=== PATIENT | female | born 1970 | race Caucasian/White ===

== ENCOUNTER 2022-09-30 18:52 | Emergency (ER) | payer OTHER ==
[~2022-09-30] VITALS: Ht 170.2 cm; Wt 93.0 kg
[2022-09-30 19:26] VITALS: BP 128/80
== END 2022-09-30 19:30 | disposition home or self-care (01) ==
LOC: ER 18:52
DX: S61.212A Laceration without foreign body of right middle finger without damage to nail, initial encounter (principal); X58.XXXA Exposure to other specified factors, initial encounter; Y93.89 Activity, other specified; Y92.89 Other specified places as the place of occurrence of the external cause; Y99.8 Other external cause status
CPT/HCPCS: 12001

== ENCOUNTER 2022-10-12 14:42 | Emergency (ER) | payer MEDICAID, OTHER ==
[~2022-10-12] VITALS: Ht 170.2 cm; Wt 100.0 kg
[2022-10-12] MEDS ORDERED: ONDA-144 PO (15:12)
[2022-10-12 15:14] VITALS: BP 122/78
[2022-10-12 16:04] LABS: Basophils # (auto) 0.1 10 ^3/uL (0-0.2); Basophils % (auto) 0.7 % (0.0-2.0); Eosinophils # (auto) 0.4 10 ^3/uL (0-0.8); Eosinophils % (auto) 2.9 % (0.0-7.0); Hematocrit 40.6 % (36.0-46.0); Hemoglobin 13.8 g/dL (12.2-16.2); Lymphocytes # (auto) 3.2 10 ^3/uL (0.4-5.4); Lymphocytes % (auto) 26.1 % (10.0-50.0); Mean Corpuscular Hemoglobin 30.3 pg (28.0-32.0); Mean Corpuscular Volume 89.3 fL (80.0-100.0); Monocytes # (auto) 0.7 10 ^3/uL (0-1.3); Monocytes % (auto) 5.7 % (0.0-12.0); Neutrophils % (auto) 64.6 % (37.0-80.0); Nucleated Red Blood Cells % 0.1 %; Red Blood Cells 4.55 10^6/uL (4.0-5.20); Red Cell Distribution Width 13.4 % (11.8-14.3); White Blood Cell 12.3 10^3/uL (4.4-10.8)
[2022-10-12 16:16] LABS: Urine Bacteria NONE SEEN /hpf (None Seen); Urine Blood Negative /uL (Negative); Urine Mucus FEW (None Seen); Urine Specific Gravity 1.024 (1.001-1.035); Urine WBC 2 /hpf (0 - 5)
[2022-10-12 16:19] LABS: Albumin 3.8 g/dL (3.4-5.0); Potassium 3.9 mmol/L (3.5-5.1)
[2022-10-12 16:23] LABS: BUN/Creatinine Ratio 11.8 (10.0-20.0); Bilirubin, Total 0.3 mg/dL (0.2-1.0)
[2022-10-12] MEDS ORDERED: ONDANSETRON ODT 4 MG TAB PO ONE (16:30)
== END 2022-10-12 15:24 | disposition home or self-care (01) ==
LOC: ER 14:42
DX: G43.909 Migraine, unspecified, not intractable, without status migrainosus (principal); I11.0 Hypertensive heart disease with heart failure; I50.9 Heart failure, unspecified; J44.9 Chronic obstructive pulmonary disease, unspecified; E78.5 Hyperlipidemia, unspecified
CPT/HCPCS: 36415; 80053; 81001; 85025; 87086; 99283; Q0162

== ENCOUNTER 2024-01-06 15:09 | Inpatient (IN) | payer MEDICAID ==
[~2024-01-06] VITALS: Ht 170.2 cm; Wt 90.3 kg
[~2024-01-06 15:09] MED LIST: ONDA-144 PO
[2024-01-06] MEDS ORDERED: VANCOMYCIN PER PHARMACY 0 MG IV SCH ×2 (16:00→18:15)
[2024-01-06] MEDS: PIPERACILLIN-TAZOB 3.375GM 100 ML IV ONE (16:23)
[2024-01-06] MEDS: SODIUM CHLORIDE 0.9% 1,000 ML IV ONE (16:23)
[2024-01-06 16:44] LABS: Basophils # (auto) 0.1 10 ^3/uL (0-0.2); Basophils % (auto) 0.9 % (0.0-2.0); Eosinophils # (auto) 0.6 10 ^3/uL (0-0.8); Eosinophils % (auto) 5.8 % (0.0-7.0); Hematocrit 33.3 % (36.0-46.0); Hemoglobin 11.4 g/dL (12.2-16.2); Lymphocytes # (auto) 2.3 10 ^3/uL (0.4-5.4); Lymphocytes % (auto) 20.7 % (10.0-50.0); Mean Corpuscular Hemoglobin 31.2 pg (28.0-32.0); Mean Corpuscular Hgb Conc. 34.1 g/dL (32.0-36.0); Mean Corpuscular Volume 91.4 fL (80.0-100.0); Monocytes # (auto) 0.8 10 ^3/uL (0-1.3); Monocytes % (auto) 7.1 % (0.0-12.0); Neutrophils # (auto) 7.3 10 ^3/uL (1.6-8.6); Neutrophils % (auto) 65.5 % (37.0-80.0); Red Blood Cells 3.65 10^6/uL (4.0-5.20); Red Cell Distribution Width 12.9 % (11.8-14.3); White Blood Cell 11.1 10^3/uL (4.4-10.8)
[2024-01-06 16:48] VITALS: PULSE 79; RESP 13; O2SAT 94
[2024-01-06 16:59] LABS: Alanine Aminotransferase 26 U/L (7-40); Alkaline Phosphatase 83 U/L (46-116); Anion Gap 8 (5-15); Aspartate Aminotransferase 13 U/L (13-40); BUN/Creatinine Ratio 9.5 (10.0-20.0); Bilirubin, Total 0.4 mg/dL (0.2-1.0); Blood Urea Nitrogen 7 mg/dL (9-23); CRP High Sensitivity 0.83 mg/dL (<1.0); Carbon Dioxide 26 mmol/L (20-30); Chloride 106 mmol/L (98-107); Glucose 107 mg/dL (74-106); Potassium 3.7 mmol/L (3.5-5.1); Sodium 140 mmol/L (136-145); Total Protein 6.6 g/dL (5.7-8.2)
[2024-01-06 17:17] LABS: Erythrocyte Sedimentation Rate 24 mm/hr (0-20)
[2024-01-06] MEDS ORDERED: IBUP-1455 PO (18:01)
[2024-01-06] MEDS ORDERED: CEPH500C PO (18:01)
[2024-01-06] MEDS ORDERED: HYDROcodone-ACET 5/325MG TAB PO PRN (18:15)
[2024-01-06] MEDS ORDERED: ACETAMINOPHEN 325 MG TAB PO PRN ×3 (18:15→18:45)
[2024-01-06 18:35] LABS: Urine Bacteria None Seen /hpf (None Seen)
[2024-01-06] MEDS ORDERED: SODIUM CHLORIDE 0.9% 1,000 ML IV SCH ×2 (18:45)
[2024-01-06] MEDS: SODIUM CHLORIDE 0.9% 1,000 ML IV SCH (18:54)
[2024-01-06] MEDS: IOHEXOL 300 MG/ML 100ML BOTTLE IJ ONE (18:54)
[2024-01-06] MEDS: VANCOMYCIN 1GM/200ML 200 ML IV ONE (18:54)
[2024-01-06 19:04] LABS: Urine Blood TRACE /uL (Negative); Urine Clarity Clear (Clear); Urine Color Light-Yellow (Yellow); Urine Hyaline Cast FEW /lpf (0 - 2); Urine Mucus FEW (None Seen); Urine Protein, UAD Negative (Negative); Urine Specific Gravity 1.016 (1.001-1.035); Urine Urobilinogen Normal (Negative); Urine WBC 1 /hpf (0 - 5); Urine pH 5.5 (5.0-9.0)
[2024-01-06 19:04] LABS: LDL Cholesterol 128 mg/dL (< 100); Triglycerides 366 mg/dL (< 150)
[2024-01-06 19:06] LABS: Cholesterol 213 mg/dL (< 200); HDL Cholesterol 47 mg/dL (40-59)
[2024-01-06 19:39] VITALS: PULSE 82; RESP 14; O2SAT 96
[2024-01-06 21:00] VITALS: BP 113/71; PULSE 70; RESP 18; TEMP 98.2; O2SAT 100
[2024-01-06 21:43] VITALS: BP 134/72; PULSE 70; RESP 18; TEMP 98.2; O2SAT 97
[2024-01-06] MEDS ORDERED: ASCORBIC ACID 500 MG TAB PO SCH (22:00)
[2024-01-06] MEDS: ASCORBIC ACID 500 MG TAB PO SCH (22:18)
[2024-01-06] MEDS: PIPERACILLIN-TAZOB 3.375GM 100 ML IV SCH (22:18)
[2024-01-07] VITALS (7 sets, daily range): BP systolic 117–134; BP diastolic 62–82; PULSE 64–73; RESP 15–20; TEMP 97.8–98.7; O2SAT 93–97
[2024-01-07 06:13] LABS: Basophils # (auto) 0.1 10 ^3/uL (0-0.2); Basophils % (auto) 0.7 % (0.0-2.0); Eosinophils # (auto) 0.6 10 ^3/uL (0-0.8); Hematocrit 30.8 % (36.0-46.0); Hemoglobin 10.8 g/dL (12.2-16.2); Lymphocytes # (auto) 1.8 10 ^3/uL (0.4-5.4); Lymphocytes % (auto) 24.2 % (10.0-50.0); Mean Corpuscular Hemoglobin 32.1 pg (28.0-32.0); Mean Corpuscular Volume 91.8 fL (80.0-100.0); Monocytes # (auto) 0.6 10 ^3/uL (0-1.3); Monocytes % (auto) 8.3 % (0.0-12.0); Neutrophils # (auto) 4.5 10 ^3/uL (1.6-8.6); Neutrophils % (auto) 58.8 % (37.0-80.0); Red Blood Cells 3.36 10^6/uL (4.0-5.20); White Blood Cell 7.6 10^3/uL (4.4-10.8)
[2024-01-07 06:27] LABS: Alanine Aminotransferase 22 U/L (7-40); Albumin 3.6 g/dL (3.2-4.8); Alkaline Phosphatase 76 U/L (46-116); Anion Gap 5 (5-15); Aspartate Aminotransferase 12 U/L (13-40); Bilirubin, Total 0.5 mg/dL (0.2-1.0); Calcium 8.9 mg/dL (8.7-10.4); Carbon Dioxide 28 mmol/L (20-30); Chloride 108 mmol/L (98-107); Glucose 100 mg/dL (74-106); Potassium 3.9 mmol/L (3.5-5.1); Sodium 141 mmol/L (136-145)
[2024-01-07 06:28] LABS: BUN/Creatinine Ratio 6.5 (10.0-20.0); Blood Urea Nitrogen < 5 mg/dL (9-23)
[2024-01-07] MEDS ORDERED: VANCOMYCIN 1GM/200ML 200 ML IV SCH (07:00)
[2024-01-07] MEDS: VANCOMYCIN 1GM/200ML 200 ML IV SCH (08:36)
[2024-01-07] MEDS: ZINC SULFATE 220mg CAP or TAB PO SCH (09:30)
[2024-01-07] MEDS: MULTIPLE VITAMIN TAB PO SCH (09:31)
[2024-01-07] MEDS ORDERED: MULTIPLE VITAMIN TAB PO SCH (10:00)
[2024-01-07] MEDS ORDERED: ZINC SULFATE 220mg CAP or TAB PO SCH (10:00)
[2024-01-07] MEDS: SILVER SULFADIAZINE 1 % TOPICAL CREAM 50GM TOP SCH (19:51)
[2024-01-08] VITALS (8 sets, daily range): BP systolic 101–132; BP diastolic 57–80; PULSE 59–71; RESP 15–20; TEMP 97.5–98.4; O2SAT 93–96
[2024-01-08 14:51] LABS: Basophils # (auto) 0.1 10 ^3/uL (0-0.2); Basophils % (auto) 0.8 % (0.0-2.0); Eosinophils # (auto) 0.5 10 ^3/uL (0-0.8); Eosinophils % (auto) 7.6 % (0.0-7.0); Hematocrit 33.1 % (36.0-46.0); Hemoglobin 11.3 g/dL (12.2-16.2); Lymphocytes # (auto) 2.1 10 ^3/uL (0.4-5.4); Lymphocytes % (auto) 29.1 % (10.0-50.0); Mean Corpuscular Hemoglobin 31.2 pg (28.0-32.0); Mean Corpuscular Hgb Conc. 34.1 g/dL (32.0-36.0); Mean Corpuscular Volume 91.6 fL (80.0-100.0); Monocytes # (auto) 0.6 10 ^3/uL (0-1.3); Monocytes % (auto) 8.7 % (0.0-12.0); Neutrophils # (auto) 3.9 10 ^3/uL (1.6-8.6); Neutrophils % (auto) 53.8 % (37.0-80.0); Nucleated Red Blood Cells % 0.1 %; Red Blood Cells 3.62 10^6/uL (4.0-5.20); Red Cell Distribution Width 12.8 % (11.8-14.3); White Blood Cell 7.2 10^3/uL (4.4-10.8)
[2024-01-08 15:01] LABS: Chloride 106 mmol/L (98-107); Sodium 141 mmol/L (136-145)
[2024-01-08 15:02] LABS: Anion Gap 7 (5-15); Carbon Dioxide 28 mmol/L (20-30)
[2024-01-08 15:07] LABS: BUN/Creatinine Ratio 10.1 (10.0-20.0); Blood Urea Nitrogen 7 mg/dL (9-23); Glucose 110 mg/dL (74-106)
[2024-01-09 01:00] VITALS: BP 109/70; PULSE 71; RESP 20; TEMP 97.7; O2SAT 95
[2024-01-09 05:00] VITALS: BP 116/72; PULSE 60; RESP 18; TEMP 99; O2SAT 92
[2024-01-09 08:00] VITALS: PULSE 73; RESP 18; O2SAT 96
[2024-01-09 08:41] VITALS: BP 114/77; PULSE 73; RESP 16; TEMP 97.1; O2SAT 96
[2024-01-09] MEDS ORDERED: CLIN1CAP70 PO (11:44)
[2024-01-09] MEDS ORDERED: HYDR-4902 PO (11:44)
[2024-01-09] MEDS ORDERED: SILV1CRE82 TOP (11:44)
[2024-01-09 12:10] VITALS: BP 121/93; PULSE 69; RESP 16; TEMP 97.3; O2SAT 96
== END 2024-01-09 12:30 | disposition home or self-care (01) | DRG 721 ==
LOC: EEVIPCON 15:09 → ER 15:09 → OVERFLOW 18:17 → EAST 21:41
PROVIDERS: ADMIT Nurse Practitioner Family; ATTEND Internal Medicine
DX: T85.79XA Infection and inflammatory reaction due to other internal prosthetic devices, implants and grafts, initial encounter (principal); I50.9 Heart failure, unspecified; E66.01 Morbid (severe) obesity due to excess calories; N61.0 Mastitis without abscess; Z98.82 Breast implant status; Z68.31 Body mass index [BMI] 31.0-31.9, adult; Y84.8 Other medical procedures as the cause of abnormal reaction of the patient, or of later complication, without mention of misadventure at the time of the procedure; Y92.89 Other specified places as the place of occurrence of the external cause
CPT/HCPCS: 36415; 71260; 74177; 80048; 80053; 80061; 80202; 81001; 82565; 83605; 84443; 84484; 85025; 85652; 86141; 87040; 93005; 99291; G0378; J2543

== ENCOUNTER 2024-02-26 07:23 | Emergency (ER) | payer MEDICAID ==
[~2024-02-26] VITALS: Ht 170.2 cm; Wt 87.3 kg
[~2024-02-26 07:23] MED LIST changes: +CLIN1CAP70 PO; +HYDR-4902 PO; -ONDA-144 PO; +SILV1CRE82 TOP
[2024-02-26] MEDS ORDERED: PENI500T2 PO (08:04)
[2024-02-26 08:15] VITALS: BP 102/59; PULSE 88; RESP 16; TEMP 98.3; O2SAT 95
[2024-02-26] MEDS: PENICILLIN G PROC & BENZAT 1200000 UNITS/2 ML SYRG IM ONE (08:20)
[2024-02-26] MEDS: methylPREDNISolone SOD SUCC 125 MG/2 ML VL IM ONE (08:20)
== END 2024-02-26 08:32 | disposition home or self-care (01) ==
LOC: ER 07:23
DX: J03.00 Acute streptococcal tonsillitis, unspecified (principal); Z79.811 Long term (current) use of aromatase inhibitors
CPT/HCPCS: 96372; 99284; J0558; J2919

== ENCOUNTER 2024-12-13 17:43 | Emergency (ER) | payer MEDICAID ==
[~2024-12-13] VITALS: Ht 170.2 cm; Wt 91.0 kg
[~2024-12-13 17:43] MED LIST changes: +AZIT-43 PO; +PENI500T2 PO
[2024-12-13 18:14] VITALS: BP 127/82; PULSE 83; RESP 16; TEMP 97.9; O2SAT 95
[2024-12-13] MEDS ORDERED: ALBUAER3 IN (18:18)
--- NOTE | 2024-12-13 18:19 | ED.PDOC ---
SOB-HPI HPI Comments 54-year-old female presents to ER with complaints of back pain x2 days. Patient reports that she started experiencing diffuse lower lumbar back pain two days ago. Denies any trauma/injury and rates her current pain an 8/10 diffuse to lower lumbar spine without radiation. Patient presents to ER ambulatory on arrival, with steady gait, in no distress and reports that she also needs a refill on her albuterol inhaler for her asthma. 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 Family History Family History: Unknown Social History Smoker: Non-Smoker Alcohol: Denies ETOH Use Drugs: Denies Drug Use Lives In: Home Constitutional: denies: chills, diaphoresis, fatigue, fever, malaise, sweats, weakness, others EENTM: denies: blurred vision, double vision, ear bleeding, ear discharge, ear drainage, ear pain, ear ringing, eye pain, eye redness, hearing loss, mouth pain, mouth swelling, nasal discharge, nose bleeding, nose congestion, nose pain, photophobia, tearing, throat pain, throat swelling, voice changes, others Respiratory: denies: cough, hemoptysis, orthopnea, SOB at rest, shortness of breath, SOB with excertion, stridor, wheezing, others Cardiovascular: denies: chest pain, dizzy spells, diaphoresis, Dyspnea on exertion, edema, irregular heart beat, left arm pain, lightheadedness, palpitations, PND, syncope, others Gastrointestinal: denies: abdomen distended, abdominal pain, blood streaked bowels, constipated, diarrhea, dysphagia, difficulty swallowing, hematemesis, melena, nausea, poor appetite, poor fluid intake, rectal bleeding, rectal pain, vomiting, others Genitourinary: denies: abnormal vagina bleeding, burning, dyspareunia, dysuria, flank pain, frequency, hematuria, incontinence, pain, , vagina discharge, urgency, others Neurological: denies: dizziness, fainting, headache, left sided numbness, left sided weakness, numbness, paresthesia, pre-existing deficit, right sided numbness, right sided weakness, seizure, speech problems, tingling, tremors, weakness, others Musculoskeletal: reports: others (As stated in HPI) Integumetry: denies: bruises, change in color, change in hair/nails, dryness, laceration, lesions, lumps, rash, wounds, others Allergic/Immunocompromised: denies: Difficulty Healing, Frequent Infections, Hives, Itching, others Hematologic/Lymphatic: denies: anemia, blood clots, easy bleeding, easy bruising, swollen glands, others Endocrine: denies: excessive hunger, excessive sweating, excessive thirst, excessive urination, flushing, intolerance to cold, intolerance to heat, unexplained weight gain, unexplained weight loss, others Psychiatric: denies: anxiety, bipolar disorder, depression, hopeless, panic disorder, schizophrenia, sleepless, suicidal, others Physical Exam General Appearance: No Apparent Distress, Obese HEENT: PERRL/EOMI Neck: Full Range of Motion, Non-Tender, Normal Respiratory: Chest Non-Tender, Lungs Clear, No Accessory Muscle Use, No Respiratory Distress, Normal Breath Sounds Cardiovascular: No Murmur, No Gallop, Regular Rate/Rhythm Breast Exam: Deferred Gastrointestinal: Non Tender, No Pulsatile Mass, Soft Genitalia: Deferred Pelvic: Deferred Rectal: Deferred Extremities: Normal capillary refill, Normal range of motion Musculoskeletal : Extremity Location: Back (Slight TTP to bilateral lower lumbar paraspinals noted. No bony tenderness to spine appreciated. Steady gait noted) Neurologic: Alert, change person II-XII nml as Tested, No Motor Deficits, Normal Affect, Normal Mood, No Sensory Deficits Cerebellar Function: Normal Reflexes: Normal Skin: Dry, Normal Color, Warm Lymphatic: No Adenopathy Was a procedure done? Was a procedure done?: No Sedation Sedation?: No Differential Dx Differential Diagnosis: Other (Fracture, UTI, neurovascular injury) X-Ray, Labs, Meds, VS Vital Signs Date Time Temp Pulse Resp B/P (MAP) Pulse Ox O2 Delivery O2 Flow Rate FiO2 12/13/24 18:14 97.9 83 16 127/82 (97) 95 97.9 12/13/24 18:00 79 18 96 Room Air 12/13/24 17:59 98.3 79 18 119/81 (94) 96 98.3 Lab Test 12/13/24 17:50 Range/Units Urine Color Light-yellow Yellow Urine Clarity Clear Clear Urine pH 5.0 5.0-9.0 Urine Specific Manter 1.020 1.001-1.035 Urine Protein Negative Negative Urine Ketones Negative Negative Urine Blood 1+ H Negative /uL Urine Nitrite Negative Negative Urine Bilirubin Negative Negative Urine Urobilinogen Normal Negative mg/dL Urine Leukocyte Esterase Negative Negative /uL Urine RBC <1 0 - 4 /hpf Urine Microscopic WBC < 1 0-5 /HPF Urine Squamous Epithelial Cells Few <5 /hpf Urine Bacteria None seen None Seen /hpf Urine Mucus Few None Seen Urine Glucose Normal Normal mg/dL Urinalysis reviewed without any significant abnormality Advised on rest/no strenuous activity Advised to follow up with PCP in 1-2 days Patient verbalized understanding and agreeable with current plan of care Advised to return to ER immediately if symptoms worsen Time of 1ST Reevaluation: 17:54 Reevaluation 1ST: N/A Patient Education/Counseling: Diagnosis, Treatment, Prognosis, Need For Follow Up Family Education/Counseling: No Family Present SEPSIS Sepsis Screen Date sepsis recognized/suspect: Dec 13, 2024 Time Sepsis recognized/suspect: 1811 Recent Procedure: No On Antibiotic Therapy: No Respiratory Rate >20: No Heart Rate >90: No Temp<36 C (96.8 F) or >38.3 C: No SBP <90 or MAP <65 mmHG: No New Acute Mental Status Change: No Is the patient on CPAP, BIPAP,: No Vital Signs Date Time Temp Pulse Resp B/P (MAP) Pulse Ox O2 Delivery O2 Flow Rate FiO2 12/13/24 18:14 97.9 83 16 127/82 (97) 95 97.9 12/13/24 18:00 79 18 96 Room Air 12/13/24 17:59 98.3 79 18 119/81 (94) 96 98.3 Departure 1 Departure Time of Disposition: 18:12 Impression: Primary Impression: Lumbar strain Qualified Codes: S39.012A - Strain of muscle, fascia and tendon of lower back, initial encounter Additional Impression: Medication refill Disposition: HOME / SELF CARE / HOMELESS Condition: Stable e-Prescriptions Cyclobenzaprine Hcl (Cyclobenzaprine Hcl) 5 Mg Tab 1 TAB PO QHSP, #14 TAB 0 Refills Prov: JULIA CARRERO 12/13/24 Ibuprofen (Ibuprofen) 800 Mg Tab 1 TAB PO TID PRN, #30 TAB 0 Refills Prov: JULIA CARRERO 12/13/24 Albuterol Sulfate (VENTOLIN MDI) 90 Mcg Ih 2 PUFF IN Q6HPRN, #1 INH 0 Refills Prov: JULIA CARRERO 12/13/24 Discharged With: Self Critical Care Note Critical Care Time?: No Stability Stability form required: No Heart Score Heart Score: Heart Score Response (Comments) Value History N/A 0 EKG N/A 0 Age N/A 0 Risk Factors N/A 0 Troponin N/A 0 Total 0 JULIA CARRERO Dec 13, 2024 18:19
[2024-12-13 18:22] LABS: Urine Protein, UAD Negative (Negative)
[2024-12-13] MEDS ORDERED: CYCL-837 PO (18:26)
[2024-12-13] MEDS ORDERED: IBUP-1456 PO (18:26)
== END 2024-12-13 18:35 | disposition home or self-care (01) ==
LOC: ER 17:47
DX: S39.012A Strain of muscle, fascia and tendon of lower back, initial encounter (principal); J45.909 Unspecified asthma, uncomplicated; Z76.0 Encounter for issue of repeat prescription; X58.XXXA Exposure to other specified factors, initial encounter; Y93.89 Activity, other specified; Y92.89 Other specified places as the place of occurrence of the external cause; Y99.8 Other external cause status
CPT/HCPCS: 81001

== ENCOUNTER 2025-01-21 14:27 | Emergency (ER) | payer MEDICAID ==
[~2025-01-21] VITALS: Ht 170.2 cm; Wt 95.4 kg
[~2025-01-21 14:27] MED LIST changes: +ALBUAER3 IN; +CYCL-837 PO; +IBUP-1456 PO
[2025-01-21 14:30] VITALS: TEMP 97.9
[2025-01-21 15:38] LABS: Hematocrit 36.3 % (36.0-46.0); Hemoglobin 12.4 g/dL (12.2-16.2); Mean Corpuscular Hemoglobin 31.3 pg (28.0-32.0); Mean Corpuscular Volume 91.5 fL (80.0-100.0); Nucleated Red Blood Cells % 0.0 %
--- NOTE | 2025-01-21 15:50 | DVH ---
Exam: CT CT AB PEL WO CON-NO ORAL OR IV History: diverticulitis Comparison Study: None TECHNIQUE: Multidetector CT of the abdomen was performed from lung bases to pubic symphysis. Imaging was performed without IV contrast. Axial, coronal and sagittal multiplanar reformats were obtained fr om the axial data set by the technologist. Radiation Dose Information: CT Dose: CTDI volume is 23.68 mGy. Dose-length product is 1326.79 mGy*cm FINDINGS: Evaluation of solid organs is limited due to lack of intravenous contrast use. Findings: Lung Bases: No acute or significant lung base finding. Normal heart size. No pleural or pericardial effusion. Liver: The liver is normal in size. No focal lesions. Gallbladder and Biliary Tree: Gallbladder has been surgically removed. Spleen: Unremarkable Pancreas: The pancreas is grossly normal in appearance. Adrenal Glands: Unremarkable Kidneys: Kidneys are grossly normal without calculi or hydronephrosis. Bladder: Grossly unremarkable for degree of distention. Bowel: The stomach is grossly normal in appearance. Stomach distended with food and fluid. Utilizatio n of GLP drugs delay gastric emptying. Small bowel and colon are normal in caliber and distribution. The appendix is not visualized; however, no secondary findings of acute appendicitis identified. Ascites: Absent Lymphadenopathy: No mesenteric, retroperitoneal or periportal lymphadenopathy. Abdominal Wall and Mesentery: Unremarkable. Vasculature: The visualized abdominal aorta is normal in size and caliber. Evaluation of abdominal a nd pelvic vessels is limited due to lack of intravenous contrast. Pelvic Organs: Unremarkable Musculoskeletal: No aggressive focal bony lesions, acute fractures or dislocation. Soft tissues: Unremarkable IMPRESSION: 1. Gallbladder has been surgically removed. 2. No nephrolithiasis or hydronephrosis. 3. No CT findings of bowel obstruction. 4. Stomach distended with stool and fluid. Correlate for DLP 1 drug utilization which May account fo r delayed gastric emptying. 5. No CT findings to suggest diverticulitis. No free air or free fluid. Radiation optimization: All CT scans at this facility use at least one of these dose optimization clarisse hniques: automated exposure control mA and/or kV adjustment per patient size (includes targeted exam s where dose is matched to clinical indication) or iterative reconstruction.
[2025-01-21] MEDS: SODIUM CHLORIDE 0.9% 1,000 ML IV ONE (15:58)
--- NOTE | 2025-01-21 15:59 | ED.PDOC ---
GI ASSESSMENT HPI Comments 54 y/o F, with PMHx of diverticular disease presents to the ED for CC of GI Bleed. Patient states, she has been having bloody stools with associated symptoms of nausea and vomiting [id number]. Patient denies hematemesis, abdominal pain, dizziness, fatigue, weakness, or blurred vision. No other symptoms or modifying factors present at this time. Chief Complaint: GI Bleed Time Seen by MD: 15:35 Primary Care Provider: CHASIDY Reviewed Notes: Nurses Notes, Medications, Allergies Allergies: Coded Allergies: NO KNOWN ALLERGIES (Unverified , 09/30/22) Home Meds Active Scripts Cyclobenzaprine Hcl (Cyclobenzaprine Hcl) 5 Mg Tab, 1 TAB PO QHSP, #14 TAB 0 Refills Prov:JULIA CARRERO 12/13/24 Ibuprofen (Ibuprofen) 800 Mg Tab, 1 TAB PO TID PRN, #30 TAB 0 Refills Prov:JULIA CARRERO 12/13/24 Albuterol Sulfate (VENTOLIN MDI) 90 Mcg Ih, 2 PUFF IN Q6HPRN, #1 INH 0 Refills Prov:JULIA CARRERO 12/13/24 Azithromycin (Azithromycin) 250 Mg Tab, 250 MG PO DAILY MDD 500 for 5 Days, #6 TAB 0 Refills 2 TABLETS ORALLY ON DAY ONE, THEN 1 TABLET ORALLY DAILY FOR 4 DAYS Prov:KIKA AHUJA NP 07/04/24 Penicillin V Potassium (Veetids) 500 Mg Tab, 1 TAB PO QID, #28 TAB Prov:FREDI ADLER 02/26/24 Clindamycin Hcl (Clindamycin Hcl) 300 Mg Cap, 1 CAP PO TID, #21 CAP Prov:SASHA FRANCIS MD 01/09/24 Silver Sulfadiazine (Silvadene) 1 % Cre, 1 APPLIC TOP BID, #1 GRAMS Prov:SASHA FRANCIS MD 01/09/24 Hydrocodone-Acetaminophen (Hydrocodone Bitartrate/AC 5-325 mg) 1 Tab Tab, 1 TAB PO Q4HP PRN, #20 TAB Prov:SASHA FRANCIS MD 01/09/24 Information Source: Patient Mode of Arrival: Ambulatory Timing: Weeks Duration: Since onset Prehospital treatment: None Quality: None Vomitus: None Stool: Blood Streaked Severity: Moderate Recent: None Recent Hx of: None Pain Location: None Modifying Factors: Nothing Associated sign and symptoms: Nausea, Vomiting, Blood in Stool Past Medical History PAST MEDICAL HISTORY: Asthma Surgical History: Denies all surgeries 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 Family History Family History: Unknown Social History Smoker: Non-Smoker Alcohol: Denies ETOH Use Drugs: Denies Drug Use Lives In: Home Constitutional: denies: chills, diaphoresis, fatigue, fever, malaise, sweats, weakness, others EENTM: denies: blurred vision, double vision, ear bleeding, ear discharge, ear drainage, ear pain, ear ringing, eye pain, eye redness, hearing loss, mouth pain, mouth swelling, nasal discharge, nose bleeding, nose congestion, nose pain, photophobia, tearing, throat pain, throat swelling, voice changes, others Respiratory: denies: cough, hemoptysis, orthopnea, SOB at rest, shortness of breath, SOB with excertion, stridor, wheezing, others Cardiovascular: denies: chest pain, dizzy spells, diaphoresis, Dyspnea on exertion, edema, irregular heart beat, left arm pain, lightheadedness, palpitations, PND, syncope, others Gastrointestinal: reports: blood streaked bowels, nausea, vomiting; denies: abdomen distended, abdominal pain, constipated, diarrhea, dysphagia, difficulty swallowing, hematemesis, melena, poor appetite, poor fluid intake, rectal bleeding, rectal pain, others Genitourinary: denies: abnormal vagina bleeding, burning, dyspareunia, dysuria, flank pain, frequency, hematuria, incontinence, pain, , vagina discharge, urgency, others Neurological: denies: dizziness, fainting, headache, left sided numbness, left sided weakness, numbness, paresthesia, pre-existing deficit, right sided numbness, right sided weakness, seizure, speech problems, tingling, tremors, weakness, others Musculoskeletal: denies: back pain, gout, joint pain, joint swelling, muscle pain, muscle stiffness, neck pain, others Integumetry: denies: bruises, change in color, change in hair/nails, dryness, laceration, lesions, lumps, rash, wounds, others Allergic/Immunocompromised: denies: Difficulty Healing, Frequent Infections, Hives, Itching, others Hematologic/Lymphatic: denies: anemia, blood clots, easy bleeding, easy bruising, swollen glands, others Endocrine: denies: excessive hunger, excessive sweating, excessive thirst, excessive urination, flushing, intolerance to cold, intolerance to heat, unexplained weight gain, unexplained weight loss, others Psychiatric: denies: anxiety, bipolar disorder, depression, hopeless, panic disorder, schizophrenia, sleepless, suicidal, others All Other Systems: Reviewed and Negative Physical Exam General Appearance: Moderate Distress HEENT: Normal ENT Inspection, Pharynx Normal, TMs Normal Neck: Full Range of Motion, Non-Tender, Normal, Normal Inspection Respiratory: Chest Non-Tender, Lungs Clear, No Accessory Muscle Use, No Respiratory Distress, Normal Breath Sounds Cardiovascular: No Edema, No JVD, No Murmur, No Gallop, Normal Peripheral Pulses, Regular Rate/Rhythm Breast Exam: Deferred Gastrointestinal: No Organomegaly, Non Tender, No Pulsatile Mass, Normal Bowel Sounds, Soft Genitalia: Deferred Pelvic: Deferred Rectal: Deferred Extremities: No calf tenderness, Normal capillary refill, Normal inspection, Normal range of motion, Non-tender, No pedal edema Musculoskeletal : Apperance: Normal Neurologic: Alert, visual merchandising associate II-XII nml as Tested, No Motor Deficits, Normal Affect, Normal Mood, No Sensory Deficits Cerebellar Function: Normal Reflexes: Normal Skin: Dry, Normal Color, Warm Peripheral Pulses: 3+ Radial (R), 3+ Radial (L) Lymphatic: No Adenopathy Was a procedure done? Was a procedure done?: No GI differential Dx Differential Diagnosis: Diverticular disease, Esophagitis, Gastritis/PUD, Gastroenteritis, GI hemorrhage, Inflammatory BD X-Ray, Labs, Meds, VS Vital Signs Date Time Temp Pulse Resp B/P (MAP) Pulse Ox O2 Delivery O2 Flow Rate FiO2 01/21/25 14:30 97.9 82 16 109/63 95 97.9 Lab Test 01/21/25 15:19 Range/Units White Blood Count 12.4 H 4.4-10.8 10^3/uL Red Blood Count 3.96 L 4.0-5.20 10^6/uL Hemoglobin 12.4 12.2-16.2 g/dL Hematocrit 36.3 36.0-46.0 % Mean Corpuscular Volume 91.5 80.0-100.0 fL Mean Corpuscular Hemoglobin 31.3 28.0-32.0 pg Mean Corpuscular Hemoglobin Concent 34.2 32.0-36.0 g/dL Red Cell Distribution Width 13.3 11.8-14.3 % Platelet Count 333 140-450 10^3/uL Mean Platelet Volume 8.3 6.9-10.8 fL Neutrophils (%) (Auto) 64.9 37.0-80.0 % Lymphocytes (%) (Auto) 26.6 10.0-50.0 % Monocytes (%) (Auto) 5.6 0.0-12.0 % Eosinophils (%) (Auto) 2.4 0.0-7.0 % Basophils (%) (Auto) 0.5 0.0-2.0 % Neutrophils # (Auto) 8.0 1.6-8.6 10 ^3/uL Lymphocytes # (Auto) 3.3 0.4-5.4 10 ^3/uL Monocytes # (Auto) 0.7 0-1.3 10 ^3/uL Eosinophils # (Auto) 0.3 0-0.8 10 ^3/uL Basophils # (Auto) 0.1 0-0.2 10 ^3/uL Nucleated Red Blood Cells 0.0 % Current Medications Medications (Trade) Dose Ordered Sig/Nghia Route Start Time Stop Time Status Last Admin Sodium Chloride 1,000 ml @ 1,000 mls/hr Q1H ONCE IV 01/21/25 15:15 01/21/25 16:14 DC 01/21/25 15:58 Metronidazole 100 ml @ 100 mls/hr ONCE ONCE IV 01/21/25 16:30 01/21/25 17:29 01/21/25 16:54 [place] [id number] Ph: [phone] DIAGNOSTIC IMAGING Diagnostic Imaging Report : [id number] Signed PATIENT: STEPHANI JEAN-BAPTISTE BACCT: [id number] UNIT: [id number] : 1970 LOC: ER ROOM / BED: / AGE / SEX: 54 / F ADM STATUS: REG ER SERVICE 9705 ORDERING PHYSICIAN: SANDRA DE LA ROSA MD PROCEDURE(s): ABPL - CT AB PEL WO CON-NO ORAL OR IV REASON: diverticulitis ORDER NUMBER(s): [id number], ACCESSION NUMBER(s): [id number] Exam: CT CT AB PEL WO CON-NO ORAL OR IV History: diverticulitis Comparison Study: None TECHNIQUE: Multidetector CT of the abdomen was performed from lung bases to pubic symphysis. Imaging was performed without IV contrast. Axial, coronal and sagittal multiplanar reformats were obtained from the axial data set by the technologist. Radiation Dose Information: CT Dose: CTDI volume is 23.68 mGy. Dose-length product is 1326.79 mGy*cm FINDINGS: Evaluation of solid organs is limited due to lack of intravenous contrast use. Findings: Lung Bases: No acute or significant lung base finding. Normal heart size. No pleural or pericardial effusion. Liver: The liver is normal in size. No focal lesions. Gallbladder and Biliary Tree: Gallbladder has been surgically removed. Spleen: Unremarkable Pancreas: The pancreas is grossly normal in appearance. Adrenal Glands: Unremarkable Kidneys: Kidneys are grossly normal without calculi or hydronephrosis. Bladder: Grossly unremarkable for degree of distention. Bowel: The stomach is grossly normal in appearance. Stomach distended with food and fluid. Utilization of GLP drugs delay gastric emptying. Small bowel and colon are normal in caliber and distribution. The appendix is not visualized; however, no secondary findings of acute appendicitis identified. Ascites: Absent Lymphadenopathy: No mesenteric, retroperitoneal or periportal lymphadenopathy. Abdominal Wall and Mesentery: Unremarkable. Vasculature: The visualized abdominal aorta is normal in size and caliber. Evaluation of abdominal and pelvic vessels is limited due to lack of intravenous contrast. Pelvic Organs: Unremarkable Musculoskeletal: No aggressive focal bony lesions, acute fractures or dislocation. Soft tissues: Unremarkable IMPRESSION: 1. Gallbladder has been surgically removed. 2. No nephrolithiasis or hydronephrosis. 3. No CT findings of bowel obstruction. 4. Stomach distended with stool and fluid. Correlate for DLP 1 drug utilization which May account for delayed gastric emptying. 5. No CT findings to suggest diverticulitis. No free air or free fluid. Radiation optimization: All CT scans at this facility use at least one of these dose optimization techniques: automated exposure control mA and/or kV adjustment per patient size (includes targeted exams where dose is matched to clinical indication) or iterative reconstruction. ATED BY: ROSELYN CARTER Jr., DO DICTATED DATE/TIME: 01/21/25 154 SIGNED BY: ROSELYN CARTER Jr., SIGNED DATE/TIME: 01/21/251547 CC: Patient alert. Complaining of abdominal pain. Possible gastroenteritis. Vitals stable. Abdomen is soft nontender. She has delayed emptying. Possibly benefit from anaerobic antibiotics. Establish intravenous access. Was given fluids. CT scan of the abdomen does not reveal any acute process. WBC slightly elevated. Possibly from dehydration. Explained to the patient. Was told to follow up with her primary care physician. Was told to come back if there is any problem. Time of 1ST Reevaluation: 16:05 Reevaluation 1ST: Unchanged Patient Education/Counseling: Diagnosis, Treatment Family Education/Counseling: No Family Present SEPSIS Sepsis Screen Date sepsis recognized/suspect: Jan 21, 2025 Time Sepsis recognized/suspect: 1433 Recent Procedure: No On Antibiotic Therapy: No Respiratory Rate >20: No Heart Rate >90: No Temp<36 C (96.8 F) or >38.3 C: No SBP <90 or MAP <65 mmHG: No New Acute Mental Status Change: No Is the patient on CPAP, BIPAP,: No Physician Orders Urinalysis (01/21/25 15:07) Ct Ab Pel Wo Con-No Oral Or Iv (01/21/25 15:07) Metronidazole 500mg/100ml (Flagyl 500mg/ (01/21/25 16:30) Vital Signs Date Time Temp Pulse Resp B/P (MAP) Pulse Ox O2 Delivery O2 Flow Rate FiO2 01/21/25 14:30 97.9 82 16 109/63 95 97.9 Laboratory Tests Test 01/21/25 15:19 White Blood Count 12.4 10^3/uL (4.4-10.8) H Medications Medications Dose Ordered Sig/Nghia Route Start Time Stop Time Status Last Admin Dose Admin Metronidazole 100 ml @ 100 mls/hr ONCE ONCE IV 01/21/25 16:30 01/21/25 17:29 01/21/25 16:54 Sodium Chloride 1,000 ml @ 1,000 mls/hr Q1H ONCE IV 01/21/25 15:15 01/21/25 16:14 DC 01/21/25 15:58 Departure 1 Departure Time of Disposition: 17:00 Impression: Primary Impression: Gastroenteritis Additional Impression: Constipation Qualified Codes: K59.01 - Slow transit constipation Disposition: HOME / SELF CARE / HOMELESS Condition: Good e-Prescriptions Metronidazole (Flagyl) 500 Mg Tab 1 TAB PO TID for 5 Days, #15 TAB Prov: SANDRA DE LA ROSA MD 01/21/25 Discharged With: Self Critical Care Note Critical Care Time?: No Stability Stability form required: No Heart Score Heart Score: Heart Score Response (Comments) Value History N/A 0 EKG N/A 0 Age N/A 0 Risk Factors N/A 0 Troponin N/A 0 Total 0 I personally scribed for SANDRA DE LA ROSA MD ([email or web address]) on 01/21/25 at 15:59. Electronically submitted by Kym Groves ([email or web address]). I personally scribed for SANDRA DE LA ROSA MD ([email or web address]) on 01/21/25 at 16:51. Electronically submitted by Kym Groves ([email or web address]). SANDRA DE LA ROSA MD Jan 21, 2025 15:59
[2025-01-21] MEDS ORDERED: METR-344 PO (17:02)
[2025-01-21 17:19] VITALS: BP 118/59; PULSE 78; RESP 18; O2SAT 95
== END 2025-01-21 17:18 | disposition home or self-care (01) ==
LOC: ER 14:27
DX: K52.9 Noninfective gastroenteritis and colitis, unspecified (principal); K59.00 Constipation, unspecified; J45.909 Unspecified asthma, uncomplicated; Z79.899 Other long term (current) drug therapy
CPT/HCPCS: 36415; 74176; 85025; 96361; 96374; 99285; J3490; J7030

== ENCOUNTER 2025-01-27 08:02 | Inpatient (IN) | payer MEDICAID ==
[~2025-01-27] VITALS: Ht 170.2 cm; Wt 104.5 kg
[2025-01-27] VITALS (10 sets, daily range): BP systolic 129–150; BP diastolic 68–85; PULSE 55–65; RESP 16–20; TEMP 97.6–98.3; O2SAT 95–100
[~2025-01-27 08:02] MED LIST changes: +METR-344 PO
--- NOTE | 2025-01-27 08:39 | ED.PDOC ---
History of Present Illness HPI Comments A 54-YEAR-OLD FEMALE WITH A C/C OF LOW ABDOMINAL PAIN WITH ASSOCIATED NAUSEA WITH BLOOD IN THE STOOL FOR 7 DAYS. PATIENT ADDITIONALLY REPORTS BLOOD STREAKED STOOL FOR X2 WEEKS. PATIENT REPORTS BEING SEEN BY DOCTOR RJ X1 WEEK AGO FOR ABDOMINAL PAIN AND BEING DISCHARGED WITH GASTROENTERITIS. PATIENT REPORTS HAVING AN ADDITIONAL WHITE BLOOD COUNT OF 12.4 AND HX OF COLITIS IN THE PAST. PATIENT HAS NO FURTHER COMPLAINTS AT THIS TIME AND OTHERWISE DENIES FURTHER ASSOCIATED SYMPTOMS OF VOMITING, DIARRHEA, FEVER, CHILLS, OR DYSURIA. PATIENT IS ALERT, ORIENTED X 4, AND HAS STEADY GAIT. Chief Complaint: Abdominal Pain Time Seen by MD: 08:27 Primary Care Provider: CHASIDY Reviewed Notes: Nurses Notes, Medications, Allergies Allergies: Coded Allergies: NO KNOWN ALLERGIES (Unverified , 09/30/22) Home Meds Active Scripts Metronidazole (Flagyl) 500 Mg Tab, 1 TAB PO TID for 5 Days, #15 TAB Prov:SANDRA DE LA ROSA MD 01/21/25 Cyclobenzaprine Hcl (Cyclobenzaprine Hcl) 5 Mg Tab, 1 TAB PO QHSP, #14 TAB 0 Refills Prov:JULIA CARRERO 12/13/24 Ibuprofen (Ibuprofen) 800 Mg Tab, 1 TAB PO TID PRN, #30 TAB 0 Refills Prov:JULIA CARRERO 12/13/24 Albuterol Sulfate (VENTOLIN MDI) 90 Mcg Ih, 2 PUFF IN Q6HPRN, #1 INH 0 Refills Prov:JULIA CARRERO 12/13/24 Azithromycin (Azithromycin) 250 Mg Tab, 250 MG PO DAILY MDD 500 for 5 Days, #6 TAB 0 Refills 2 TABLETS ORALLY ON DAY ONE, THEN 1 TABLET ORALLY DAILY FOR 4 DAYS Prov:KIKA AHUJA NP 07/04/24 Penicillin V Potassium (Veetids) 500 Mg Tab, 1 TAB PO QID, #28 TAB Prov:FREDI ADLER 02/26/24 Clindamycin Hcl (Clindamycin Hcl) 300 Mg Cap, 1 CAP PO TID, #21 CAP Prov:SASHA FRANCIS MD 01/09/24 Silver Sulfadiazine (Silvadene) 1 % Cre, 1 APPLIC TOP BID, #1 GRAMS Prov:SASHA FRANCIS MD 7/28/24 Hydrocodone-Acetaminophen (Hydrocodone Bitartrate/AC 5-325 mg) 1 Tab Tab, 1 TAB PO Q4HP PRN, #20 TAB Prov:SASHA FRANCIS MD 01/09/24 Information Source: Patient Mode of Arrival: Ambulatory Severity: Moderate Timing: Days Duration: Since onset Medication Refill: For: Other (LOWER ABD PAIN WITH NAUSEA AND BLOOD IN THE STOOL ) Associated signs and symptoms NAUSEA AND ABDOMINAL PAIN Past Medical History PAST MEDICAL HISTORY: Asthma Past Medical History (Other): COLITIS Surgical History: Denies all surgeries GAMBLING MONITOR History: No Pertinent GAMBLING MONITOR History Family History Family History: Unknown Social History Smoker: Non-Smoker Alcohol: Denies ETOH Use Drugs: Denies Drug Use Lives In: Home Constitutional: denies: chills, diaphoresis, fatigue, fever, malaise, sweats, weakness, others EENTM: denies: blurred vision, double vision, ear bleeding, ear discharge, ear drainage, ear pain, ear ringing, eye pain, eye redness, hearing loss, mouth pain, mouth swelling, nasal discharge, nose bleeding, nose congestion, nose pain, photophobia, tearing, throat pain, throat swelling, voice changes, others Respiratory: denies: cough, hemoptysis, orthopnea, SOB at rest, shortness of breath, SOB with excertion, stridor, wheezing, others Cardiovascular: denies: chest pain, dizzy spells, diaphoresis, Dyspnea on exertion, edema, irregular heart beat, left arm pain, lightheadedness, palpitations, PND, syncope, others Gastrointestinal: reports: abdominal pain, nausea; denies: abdomen distended, blood streaked bowels, constipated, diarrhea, dysphagia, difficulty swallowing, hematemesis, melena, poor appetite, poor fluid intake, rectal bleeding, rectal pain, vomiting, others Genitourinary: reports: others (BLOOD IN THE STOOL. ); denies: abnormal vagina bleeding, burning, dyspareunia, dysuria, flank pain, frequency, hematuria, incontinence, pain, , vagina discharge, urgency Neurological: denies: dizziness, fainting, headache, left sided numbness, left sided weakness, numbness, paresthesia, pre-existing deficit, right sided numbness, right sided weakness, seizure, speech problems, tingling, tremors, weakness, others Musculoskeletal: denies: back pain, gout, joint pain, joint swelling, muscle pain, muscle stiffness, neck pain, others Integumetry: denies: bruises, change in color, change in hair/nails, dryness, laceration, lesions, lumps, rash, wounds, others Allergic/Immunocompromised: denies: Difficulty Healing, Frequent Infections, Hives, Itching, others Hematologic/Lymphatic: denies: anemia, blood clots, easy bleeding, easy bruis ing, swollen glands, others Endocrine: denies: excessive hunger, excessive sweating, excessive thirst, exc essive urination, flushing, intolerance to cold, intolerance to heat, unexplained weight gain, unexplained weight loss, others Psychiatric: denies: anxiety, bipolar disorder, depression, hopeless, panic disorder, schizophrenia, sleepless, suicidal, others All Other Systems: Reviewed and Negative Physical Exam General Appearance: Mild Distress, Obese HEENT: Normal ENT Inspection, PERRL/EOMI, Pharynx Normal, TMs Normal Neck: Full Range of Motion, Non-Tender, Normal, Normal Inspection Respiratory: Chest Non-Tender, Lungs Clear, No Accessory Muscle Use, No Respiratory Distress, Normal Breath Sounds Cardiovascular: No Edema, No JVD, No Murmur, No Gallop, Normal Peripheral Pulses, Regular Rate/Rhythm Breast Exam: Deferred Gastrointestinal: LLQ, No Organomegaly, No Pulsatile Mass, Normal Bowel Sounds, RLQ, Soft, Tenderness (LOWER ABD, NO GUARDING AND REBOUND TENDERNESS. ) Genitalia: Deferred Pelvic: Deferred Rectal: Other (PT DECLINED RECTAL EXAM. ) Extremities: No calf tenderness, Normal capillary refill, Normal inspection, Normal range of motion, Non-tender, No pedal edema Musculoskeletal : Apperance: Normal Neurologic: Alert, programmer numerical control II-XII nml as Tested, No Motor Deficits, Normal Affect, Normal Mood, No Sensory Deficits Cerebellar Function: Normal Reflexes: Normal Skin: Dry, Normal Color, Warm Peripheral Pulses: 2+ carotid (R), 2+ carotid (L) Lymphatic: No Adenopathy Was a procedure done? Was a procedure done?: No Differential Dx Considerations may include: COLITIS, UTI, DIVERTICULITIS X-Ray, Labs, Meds, VS Vital Signs Date Time Temp Pulse Resp B/P (MAP) Pulse Ox O2 Delivery O2 Flow Rate FiO2 01/27/25 12:00 98.3 60 18 139/82 (101) 97 98.3 01/27/25 11:51 60 18 97 Room Air 01/27/25 11:51 98.0 60 18 151/92 (111) 97 98.0 01/27/25 08:04 97.9 68 16 129/83 97 97.9 Lab Test 01/27/25 10:36 01/27/25 08:34 01/27/25 08:17 Range/Units White Blood Count 12.1 H 11.6 H 4.4-10.8 10^3/uL Red Blood Count 4.21 4.26 4.0-5.20 10^6/uL Hemoglobin 13.0 13.2 12.2-16.2 g/dL Hematocrit 38.3 38.5 36.0-46.0 % Mean Corpuscular Volume 91.1 90.4 80.0-100.0 fL Mean Corpuscular Hemoglobin 30.9 31.1 28.0-32.0 pg Mean Corpuscular Hemoglobin Concent 33.9 34.4 32.0-36.0 g/dL Red Cell Distribution Width 13.4 13.2 11.8-14.3 % Platelet Count 339 333 140-450 10^3/uL Mean Platelet Volume 8.8 8.5 6.9-10.8 fL Neutrophils (%) (Auto) 63.9 63.6 37.0-80.0 % Lymphocytes (%) (Auto) 26.9 26.1 10.0-50.0 % Monocytes (%) (Auto) 5.8 6.3 0.0-12.0 % Eosinophils (%) (Auto) 2.8 3.2 0.0-7.0 % Basophils (%) (Auto) 0.6 0.8 0.0-2.0 % Neutrophils # (Auto) 7.7 7.4 1.6-8.6 10 ^3/uL Lymphocytes # (Auto) 3.3 3.0 0.4-5.4 10 ^3/uL Monocytes # (Auto) 0.7 0.7 0-1.3 10 ^3/uL Eosinophils # (Auto) 0.3 0.4 0-0.8 10 ^3/uL Basophils # (Auto) 0.1 0.1 0-0.2 10 ^3/uL Nucleated Red Blood Cells 0.1 0.0 % Sodium Level 140 136-145 mmol/L Potassium Level 3.9 3.5-5.1 mmol/L Chloride Level 108 H 98-107 mmol/L Carbon Dioxide Level 26 20-31 mmol/L Anion Gap 6 5-15 Blood Urea Nitrogen 13 9-23 mg/dL Creatinine 0.74 0.550-1.02 mg/dL Glomerular Filtration Rate Calc 97 >90 mL/min BUN/Creatinine Ratio 17.6 10.0-20.0 Serum Glucose 96 74-106 mg/dL Hemoglobin A1c Pending Calcium Level 8.8 8.7-10.4 mg/dL Total Bilirubin 0.2 0.2-1.0 mg/dL Aspartate Amino Transferase (AST) 17 13-40 U/L Alanine Aminotransferase (ALT) 18 7-40 U/L Alkaline Phosphatase 95 46-116 U/L Total Protein 6.8 5.7-8.2 g/dL Albumin 4.3 3.2-4.8 g/dL Lipase 53 12-53 U/L Thyroid Stimulating Hormone (TSH) Pending Urine Color Light-yellow Yellow Urine Clarity Clear Clear Urine pH 5.5 5.0-9.0 Urine Specific [place] 1.020 1.001-1.035 Urine Protein Negative Negative Urine Ketones Negative Negative Urine Blood Trace H Negative /uL Urine Nitrite Negative Negative Urine Bilirubin Negative Negative Urine Urobilinogen Normal Negative mg/dL Urine Leukocyte Esterase Negative Negative /uL Urine RBC 1 0 - 4 /hpf Urine Microscopic WBC < 1 0-5 /HPF Urine Squamous Epithelial Cells Few <5 /hpf Urine Bacteria None seen None Seen /hpf Urine Glucose Normal Normal mg/dL Current Medications Medications (Trade) Dose Ordered Sig/Nghia Route Start Time Stop Time Status Last Admin Sodium Chloride 1,000 ml @ 1,000 mls/hr Q1H ONCE IV 01/27/25 09:30 01/27/25 10:29 DC 01/27/25 10:00 Ceftriaxone Sodium 50 ml @ 100 mls/hr ONCE ONCE IV 01/27/25 09:30 01/27/25 09:59 DC 01/27/25 09:45 Metronidazole 100 ml @ 100 mls/hr ONCE ONCE IV 01/27/25 11:45 01/27/25 12:44 DC 01/27/25 12:55 [facility] [id number] [place] [id number] Ph: [phone] DIAGNOSTIC IMAGING Diagnostic Imaging Report : [id number] Signed PATIENT: STEPHANI JEAN-BAPTISTE BACCT: [id number] UNIT: [id number] : 1970 LOC: ER ROOM / BED: / AGE / SEX: 54 / F ADM STATUS: REG ER SERVICE [id number] ORDERING PHYSICIAN: FREDI ADLER PROCEDURE(s): ABPL - CT AB PEL WO CON-NO ORAL OR IV REASON: LOW ABD PAIN WITH NAUSEA ORDER NUMBER(s): [id number], ACCESSION NUMBER(s): [id number] CT CT AB PEL WO CON-NO ORAL OR IV INDICATION: LOW ABD PAIN WITH NAUSEA EXAM DATE: 01/27/2025 08:20 AM COMPARISON: CT CT AB PEL WO CON-NO ORAL OR IV on DOS: 01/21/25, CT CT CHEST/AB/PL W CON- IV ONLY on DOS: 01/06/24 RADIATION DOSE: CTDIvol: 21.45 mGy, DLP: 1073.09 mGy*cm PROCEDURE: Helical CT images were obtained of the abdomen and pelvis without IV contrast Sagittal and coronal reconstructions are provided. ORAL CONTRAST: None. ADDITIONAL IMAGES / REFORMATS: None All CT scans at this medical facility are performed using dose modulation techniques as appropriate to a performed exam including the following: Automated exposure control was utilized; adjustment of the MA and/or KV according to patient size; and use of iterative reconstruction technique. FINDINGS: LUNG BASE: Normal. LIVER: Normal. GALLBLADDER AND BILIARY TREE: Annamaria clips. No intra- or extrahepatic biliary ductal dilation. PANCREAS: Normal. SPLEEN: Normal. BOWEL: Mild colonic diverticulosis. Normal appendix. ADRENALS: Normal. KIDNEYS AND URETER: Normal. BLADDER: Normal. REPRODUCTIVE ORGANS: Normal. LYMPH NODES:No lymphadenopathy. PERITONEUM: No ascites or free air. No other fluid collection. VESSELS: Scattered atherosclerotic calcifications are noted. RETROPERITONEUM: Normal. ABDOMINAL WALL: Normal. BONES: Scattered osseous degenerative changes are noted. IMPRESSION: No acute intraabdominal abnormality. X-Ray, Labs, Meds, VS Comment EXTERNAL MEDICAL RECORDS REVIEWED: [NONE] INDEPENDENT HISTORIANS: [NONE] SOCIAL DETERMINANTS OF HEALTH: [NONE] LABS ORDERED: CBC, BMP, URINALYSIS REVIEWED AND INTERPRETED RESULTS: NONE IMAGING ORDERED: ABDOMINAL / PELVIC CT SHOWED NO ABNORMALITIES TREATMENTS ORDERED: IV FLUIDS, ROCEPHIN 1GM/50ML AND FLAGYL 500MG IVP PROCEDURES PERFORMED: PATIENT REFUSED RECTAL EXAM AT THIS TIME FOR SUSPECTED BLOOD STREAKED STOOL. CRITICAL CARE TIME: NONE I HAVE DISCUSSED THE PATIENT WITH THE ATTENDING PHYSICIAN DR. BURKS AND SHE AGREES WITH THE PATIENT'S PLAN OF CARE AND DISPOSITION. BASED ON HISTORY OF PRESENT ILLNESS, HX OF COLITIS AND PHYSICAL EXAM, PATIENT WILL BE ADMITTED TO HOSPITAL FOR FURTHER EVALUATION AND TREATMENT. PT DECLINED RECTAL EXAM. Images Reviewed?: Images reviewed and evaluated by me Time of 1ST Reevaluation: 10:13 Reevaluation 1ST: Unchanged Patient Education/Counseling: Diagnosis, Treatment Family Education/Counseling: Diagnosis, Treatment, No Family Present SEPSIS Sepsis Screen Date sepsis recognized/suspect: Jan 27, 2025 Time Sepsis recognized/suspect: 805 Recent Procedure: No On Antibiotic Therapy: No Respiratory Rate >20: No Heart Rate >90: No Temp<36 C (96.8 F) or >38.3 C: No SBP <90 or MAP <65 mmHG: No New Acute Mental Status Change: No Is the patient on CPAP, BIPAP,: No Physician Orders Ct Ab Pel Wo Con-No Oral Or Iv (01/27/25 08:17) Heplock Iv (01/27/25 ) Vital Signs Date Time Temp Pulse Resp B/P (MAP) Pulse Ox O2 Delivery O2 Flow Rate FiO2 01/27/25 12:00 98.3 60 18 139/82 (101) 97 98.3 01/27/25 11:51 60 18 97 Room Air 01/27/25 11:51 98.0 60 18 151/92 (111) 97 98.0 01/27/25 08:04 97.9 68 16 129/83 97 97.9 Laboratory Tests Test 01/27/25 08:34 01/27/25 10:36 White Blood Count 11.6 10^3/uL (4.4-10.8) H 12.1 10^3/uL (4.4-10.8) H Medications Medications Dose Ordered Sig/Nghia Route Start Time Stop Time Status Last Admin Dose Admin Ceftriaxone Sodium 50 ml @ 100 mls/hr ONCE ONCE IV 01/27/25 09:30 01/27/25 09:59 DC 01/27/25 09:45 Metronidazole 100 ml @ 100 mls/hr ONCE ONCE IV 01/27/25 11:45 01/27/25 12:44 DC 01/27/25 12:55 Sodium Chloride 1,000 ml @ 1,000 mls/hr Q1H ONCE IV 01/27/25 09:30 01/27/25 10:29 DC 01/27/25 10:00 Departure 1 Departure Time of Disposition: 11:57 Impression: Primary Impression: Blood in stool Additional Impressions: Colitis Leukocytosis Qualified Codes: D72.829 - Elevated white blood cell count, unspecified Disposition: ADMITTED INPATIENT Condition: Serious Critical Care Note Critical Care Time?: No Stability Stability form required: Yes Unstable for transfer: Requires medication, Needs higher than EMT, ED Physician Assesment, Possible rapid decline Heart Score Heart Score: Heart Score Response (Comments) Value History N/A 0 EKG N/A 0 Age N/A 0 Risk Factors N/A 0 Troponin N/A 0 Total 0 I personally scribed for MEKA ADLERA PA ([email or web address]) on 01/27/25 at 08:39. Electronically submitted by Gricel Lobo ([email or web address]). I personally scribed for VITORGURJITXIA PA ([email or web address]) on 01/27/25 at 10:17. Electronically submitted by Gricel Lobo ([email or web address]). I personally scribed for VITORMEKAA PA ([email or web address]) on 01/27/25 at 10:19. Electronically submitted by Gricel Lobo ([email or web address]). I personally scribed for VITORYINXIA PA ([email or web address]) on 01/27/25 at 11:36. Electronically submitted by Gricel Lobo ([email or web address]). I personally scribed for VITORGURJITXIA PA ([email or web address]) on 01/27/25 at 11:39. Electronically submitted by Gricel Lobo ([email or web address]). MEKA ADLERA PA Jan 27, 2025 08:39
[2025-01-27 08:52] LABS: Urine Protein, UAD Negative (Negative)
[2025-01-27 08:52] LABS: Hematocrit 38.5 % (36.0-46.0); Hemoglobin 13.2 g/dL (12.2-16.2); Mean Corpuscular Hemoglobin 31.1 pg (28.0-32.0); Mean Corpuscular Volume 90.4 fL (80.0-100.0); Nucleated Red Blood Cells % 0.0 %
[2025-01-27 09:04] LABS: Alanine Aminotransferase 18 U/L (7-40); Albumin 4.3 g/dL (3.2-4.8); Alkaline Phosphatase 95 U/L (46-116); Anion Gap 6 (5-15); BUN/Creatinine Ratio 17.6 (10.0-20.0); Blood Urea Nitrogen 13 mg/dL (9-23); Calcium 8.8 mg/dL (8.7-10.4); Carbon Dioxide 26 mmol/L (20-31); Glucose 96 mg/dL (74-106); Potassium 3.9 mmol/L (3.5-5.1); Sodium 140 mmol/L (136-145); Total Protein 6.8 g/dL (5.7-8.2)
[2025-01-27 09:05] LABS: Bilirubin, Total 0.2 mg/dL (0.2-1.0); Chloride 108 mmol/L (98-107); Lipase 53 U/L (12-53)
--- NOTE | 2025-01-27 09:10 | DVH ---
CT CT AB PEL WO CON-NO ORAL OR IV INDICATION: LOW ABD PAIN WITH NAUSEA EXAM DATE: 01/27/2025 08:20 AM COMPARISON: CT CT AB PEL WO CON-NO ORAL OR IV on DOS: 01/21/25, CT CT CHEST/AB/PL W CON- IV ONLY on DO S: 01/06/24 RADIATION DOSE: CTDIvol: 21.45 mGy, DLP: 1073.09 mGy*cm PROCEDURE: Helical CT images were obtained of the abdomen and pelvis without IV contrast Sagittal and coronal reconstructions are provided. ORAL CONTRAST: None. ADDITIONAL IMAGES / REFORMATS: None All C T scans at this medical facility are performed using dose modulation techniques as appropriate to a p erformed exam including the following: Automated exposure control was utilized; adjustment of the MA and/or KV according to patient size; and use of iterative reconstruction technique. FINDINGS: LUNG BASE: Normal. LIVER: Normal. GALLBLADDER AND BILIARY TREE: Annamaria clips. No intra- or extrahepatic biliary ductal dilation. PANCREAS: Normal. SPLEEN: Normal. BOWEL: Mild colonic diverticulosis. Normal appendix. ADRENALS: Normal. KIDNEYS AND URETER: Normal. BLADDER: Normal. REPRODUCTIVE ORGANS: Normal. LYMPH NODES:No lymphadenopathy. PERITONEUM: No ascites or free air. No other fluid collection. VESSELS: Scattered atherosclerotic calcifications are noted. RETROPERITONEUM: Normal. ABDOMINAL WALL: Normal. BONES: Scattered osseous degenerative changes are noted. IMPRESSION: No acute intraabdominal abnormality.
[2025-01-27] MEDS: cefTRIAXone 1GM/50ML D5W 50 ML IV ONE (09:45)
[2025-01-27] MEDS: SODIUM CHLORIDE 0.9% 1,000 ML IV ONE ×2 (10:00→14:21)
[2025-01-27 11:18] LABS: Hematocrit 38.3 % (36.0-46.0); Hemoglobin 13.0 g/dL (12.2-16.2); Mean Corpuscular Hemoglobin 30.9 pg (28.0-32.0); Mean Corpuscular Volume 91.1 fL (80.0-100.0); Nucleated Red Blood Cells % 0.1 %
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
[2025-01-27] MEDS ORDERED: ACETAMINOPHEN 500 MG TAB or CAP PO PRN (13:30)
[2025-01-27] MEDS: PANTOPRAZOLE 40 MG/10 ML VIAL INJ IV ONE (14:21)
[2025-01-27] MEDS: LOSARTAN POTASSIUM 25 MG TAB PO ONE (14:22)
[2025-01-27 15:19] LABS: COVID19 ANTIGEN SOFIA FIA NEGATIVE (NEGATIVE)
[2025-01-27] MEDS: IPRATROPIUM BROM 0.5 MG/2.5ML INH SOL NEB PRN (18:40)
[2025-01-27] MEDS ORDERED: LOSA-533 PO (20:30)
[2025-01-27] MEDS ORDERED: ATOR40TA52 PO (20:30)
[2025-01-27] MEDS: ONDANSETRON HCL 4 MG/2 ML VIAL IV ONE (20:47)
[2025-01-27] MEDS: ATORVASTATIN 20 MG TAB PO SCH (21:06)
[2025-01-28] VITALS (7 sets, daily range): BP systolic 124–133; BP diastolic 83–86; PULSE 54–97; RESP 18; TEMP 97.4–98.1; O2SAT 93–97
[2025-01-28 07:25] LABS: Hematocrit 36.9 % (36.0-46.0); Hemoglobin 12.7 g/dL (12.2-16.2); Mean Corpuscular Hemoglobin 31.3 pg (28.0-32.0); Mean Corpuscular Volume 91.2 fL (80.0-100.0); Nucleated Red Blood Cells % 0.0 %
[2025-01-28 07:38] LABS: Potassium 4.1 mmol/L (3.5-5.1); Sodium 142 mmol/L (136-145)
[2025-01-28 07:39] LABS: Anion Gap 7 (5-15); Carbon Dioxide 24 mmol/L (20-31)
[2025-01-28 07:44] LABS: BUN/Creatinine Ratio 10.3 (10.0-20.0); Glucose 88 mg/dL (74-106)
[2025-01-28 07:47] LABS: Blood Urea Nitrogen 7 mg/dL (9-23); Calcium 8.5 mg/dL (8.7-10.4); Chloride 111 mmol/L (98-107)
[2025-01-28] MEDS: cefTRIAXone 1GM/50ML D5W 50 ML IV SCH (09:14)
[2025-01-28] MEDS: PANTOPRAZOLE 40 MG/10 ML VIAL INJ IV SCH (09:17)
[2025-01-28] MEDS: LOSARTAN POTASSIUM 25 MG TAB PO SCH (09:22)
--- NOTE | 2025-01-28 12:16 | DVHPN2 ---
Reviewed: Care Plan, H&P, Labs, Medications, Previous Orders, Radiology Changes from previous H/P or p: No Changes Gastrointestinal: Nausea, Abdominal Pain, Hematochezia Objective Vitals Vital Signs Date Time Temp Pulse Resp B/P (MAP) Pulse Ox O2 Delivery O2 Flow Rate FiO2 01/28/25 09:22 130/84 01/28/25 09:13 98.0 97 18 97 98.0 01/28/25 08:38 Room Air* 0 21 Intake/Output Intake and Output 01/28/25 07:00 Intake Total 1700 ml Output Total 500 ml Balance 1200 ml Intake Oral 350 ml IV Total 1350 ml Output Urine Total 500 ml # Voids 6 Medications Current Medications Medications Dose Ordered Sig/Nghia Route Start Time Stop Time Status Last Admin Dose Admin Ceftriaxone Sodium 50 ml @ 100 mls/hr DAILY@09 IV 01/28/25 09:00 01/28/25 09:14 100 MLS/HR Metronidazole 100 ml @ 100 mls/hr Q8HR IV 01/27/25 14:00 01/28/25 05:20 100 MLS/HR Pantoprazole Sodium 40 mg DAILY IV 01/28/25 10:00 01/28/25 09:17 40 MG Acetaminophen 500 mg Q4HPRN PRN PO 01/27/25 13:30 Ipratropium [place] 0.5 mg Q6HPRN PRN NEB 01/27/25 13:30 01/27/25 18:40 0.5 MG Losartan Potassium 25 mg DAILY PO 01/28/25 10:00 01/28/25 09:22 25 MG Atorvastatin Calcium 20 mg HS PO 01/27/25 22:00 01/27/25 21:06 20 MG Laboratory Results Laboratory Tests 01/28/25 05:44 Chemistry Test 01/28/25 05:44 Calcium Level 8.5 mg/dL (8.7-10.4) L Urinalysis Test 01/27/25 08:17 Urine Color Light-yellow (Yellow) Urine Clarity Clear (Clear) Urine pH 5.5 (5.0-9.0) Urine Specific [place] 1.020 (1.001-1.035) Urine Protein Negative (Negative) Urine Ketones Negative (Negative) Urine Blood Trace /uL (Negative) H Urine Nitrite Negative (Negative) Urine Bilirubin Negative (Negative) Urine Urobilinogen Normal mg/dL (Negative) Urine Leukocyte Esterase Negative /uL (Negative) Urine RBC 1 /hpf (0 - 4) Urine Microscopic WBC < 1 /HPF (0-5) Urine Squamous Epithelial Cells Few /hpf (<5) Urine Bacteria None seen /hpf (None Seen) Urine Glucose Normal mg/dL (Normal) Labs and/or images reviewed: Labs reviewed by me, Image(s) reviewed by me Assessment/Plan Assessment/Plan Rectal bleeding hemoglobin 13.2, GI consult by Dr. Huey Ramos Possible internal hemorrhoids versus diverticulitis: Eugenioepmichael Flagyl Hypertension Hyperlipidemia Chronic current smoker: Counseling History of liposuction and bilateral breast surgery at [facility] Obesity Obstructive sleep apnea on CPAP RN Soledad at bedside A copy of labs given to the patient per her request to sent to her Dr who is going to do liposuction on 02/06/2025 Patient is Thinking of leaving AMA Plan discussed with: Patient Date of Service: Jan 28, 2025 Billing Provider: CATHERINE ALDRIDGE MD Common Visit Codes: [id number] INP/OBS CARE(HIGH) CATHERINE ALDRIDGE MD Jan 28, 2025 12:16
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
--- NOTE | 2025-01-29 07:58 | DVHDS2 ---
Discharge Summary Date of Admission Jan 27, 2025 at 13:03 Date of Discharge: Jan 28, 2025 Admitting Diagnosis Rectal bleeding Wounds: None Labs/Diagnostic Data: Laboratory Results Test 01/28/25 05:44 01/27/25 15:38 01/27/25 14:15 01/27/25 13:27 White Blood Count 10.4 10^3/uL (4.4-10.8) Red Blood Count 4.05 10^6/uL (4.0-5.20) Hemoglobin 12.7 g/dL (12.2-16.2) Hematocrit 36.9 % (36.0-46.0) Mean Corpuscular Volume 91.2 fL (80.0-100.0) Mean Corpuscular Hemoglobin 31.3 pg (28.0-32.0) Mean Corpuscular Hemoglobin Concent 34.3 g/dL (32.0-36.0) Red Cell Distribution Width 13.2 % (11.8-14.3) Platelet Count 290 10^3/uL (140-450) Mean Platelet Volume 9.2 fL (6.9-10.8) Neutrophils (%) (Auto) 69.1 % (37.0-80.0) Lymphocytes (%) (Auto) 22.3 % (10.0-50.0) Monocytes (%) (Auto) 5.5 % (0.0-12.0) Eosinophils (%) (Auto) 2.7 % (0.0-7.0) Basophils (%) (Auto) 0.4 % (0.0-2.0) Neutrophils # (Auto) 7.2 10 ^3/uL (1.6-8.6) Lymphocytes # (Auto) 2.3 10 ^3/uL (0.4-5.4) Monocytes # (Auto) 0.6 10 ^3/uL (0-1.3) Eosinophils # (Auto) 0.3 10 ^3/uL (0-0.8) Basophils # (Auto) 0 10 ^3/uL (0-0.2) Nucleated Red Blood Cells 0.0 % Sodium Level 142 mmol/L (136-145) Potassium Level 4.1 mmol/L (3.5-5.1) Chloride Level 111 mmol/L (98-107) Carbon Dioxide Level 24 mmol/L (20-31) Anion Gap 7 (5-15) Blood Urea Nitrogen 7 mg/dL (9-23) Creatinine 0.68 mg/dL (0.550-1.02) Glomerular Filtration Rate Calc 105 mL/min (>90) BUN/Creatinine Ratio 10.3 (10.0-20.0) Serum Glucose 88 mg/dL (74-106) Calcium Level 8.5 mg/dL (8.7-10.4) Influenza Type A Antigen Negative (Negative) Influenza Type B Antigen Negative (Negative) SARS-CoV-2 Antigen (Rapid) Negative (NEGATIVE) Lactic Acid Level 0.8 mmol/L (0.4-2.0) Test 01/27/25 08:34 01/27/25 08:17 Hemoglobin A1c 5.4 % A1C (<5.7) Total Bilirubin 0.2 mg/dL (0.2-1.0) Aspartate Amino Transferase (AST) 17 U/L (13-40) Alanine Aminotransferase (ALT) 18 U/L (7-40) Alkaline Phosphatase 95 U/L (46-116) Total Protein 6.8 g/dL (5.7-8.2) Albumin 4.3 g/dL (3.2-4.8) Lipase 53 U/L (12-53) Thyroid Stimulating Hormone (TSH) 1.56 uIU/mL (0.55-4.78) Urine Color Light-yellow (Yellow) Urine Clarity Clear (Clear) Urine pH 5.5 (5.0-9.0) Urine Specific [place] 1.020 (1.001-1.035) Urine Protein Negative (Negative) Urine Ketones Negative (Negative) Urine Blood Trace /uL (Negative) Urine Nitrite Negative (Negative) Urine Bilirubin Negative (Negative) Urine Urobilinogen Normal mg/dL (Negative) Urine Leukocyte Esterase Negative /uL (Negative) Urine RBC 1 /hpf (0 - 4) Urine Microscopic WBC < 1 /HPF (0-5) Urine Squamous Epithelial Cells Few /hpf (<5) Urine Bacteria None seen /hpf (None Seen) Urine Glucose Normal mg/dL (Normal) Other Laboratory Tests 01/28/25 05:44 Brief Hx & Hospital Course: 54-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 History of hypertension hypercholesterolemia chronic current smoker. History of liposuction bilateral breast surgeries at [facility] obstructive sleep apnea using CPAP history of colon cancer in the family. Hemoglobin 13.2 and stable started with Rocephin and Flagyl for possible colitis. GI consult by Dr. Huey Ramos who advised the patient has been having regular colonoscopy by gastric group and advised outpatient colonoscopy. The patient decided to leave AMA and left AMA prior to official discharge. Patient wanted copy of labs to show that her white count is normal for her upcoming liposuction surgery at [facility] on 02/06/2025. A copy was given and patient left AMA. Condition satisfactory at the time of leaving AMA. The patient also has a history of internal hemorrhoids and rectal bleeding maybe from the hemorrhoids. Consults/Reason for consult GI Dr. Huey Ramos Operations or Procedures CT abdomen pelvis without contrast Condition at Discharge: Fair Final Diagnosis/Problems List Rectal bleeding hemoglobin 13.2, GI consult by Dr. Huey Ramos Possible internal hemorrhoids versus diverticulitis: Rocephin Flagyl Hypertension Hyperlipidemia Chronic current smoker: Counseling History of liposuction and bilateral breast surgery at [facility] Obesity Obstructive sleep apnea on CPAP Discharge Disposition: AMA Discharge Instruct/Medications Diet comment: Not applicable Patient left AMA Activity comment: Not applicable Patient left AMA Follow Up/Referral: Not applicable Patient left AMA Medications: Not applicable Patient left AMA Scheduled Albuterol Sulfate (Ventolin Mdi), 2 PUFF IN Q6HPRN Atorvastatin Calcium (Atorvastatin Calcium), 1 TAB PO QPM, (Reported) Azithromycin (Azithromycin), 250 MG PO DAILY Clindamycin Hcl (Clindamycin Hcl), 1 CAP PO TID Cyclobenzaprine Hcl (Cyclobenzaprine Hcl), 1 TAB PO QHSP Losartan Potassium (Losartan Potassium), 20 MG PO DAILY, (Reported) Metronidazole (Flagyl), 1 TAB PO TID Penicillin V Potassium (Veetids), 1 TAB PO QID Silver Sulfadiazine (Silvadene), 1 APPLIC TOP BID Scheduled PRN Hydrocodone-Acetaminophen (Hydrocodone Bitartrate/AC 5-325 mg), 1 TAB PO Q4HP PRN Ibuprofen (Ibuprofen), 1 TAB PO TID PRN 36 (Time taken for discharge summary 36 minutes) Discharge Statement: "Patient was advised to return to the ER or call 911 if any headaches, dizziness, shortness of breath, chest pain, abdominal pain, bleeding, fevers, or worsening of medical condition. Patient was counseled about treatment plan, medications, possible side effects, patientverbalized understanding. All questions were answered to the best of my ability. This discharge took greater then 30 minutes in planning, reviewing documentation, counseling the patient, and discussing with other team members." ASSESSMENT ASSESSMENT Assessment Date of Service: Jan 29, 2025 Billing Provider: CATHERINE ALDRIDGE MD Common Visit Codes: [id number] DISCH DAY >30min CATHERINE ALDRIDGE MD Jan 29, 2025 07:58
== END 2025-01-28 15:03 | disposition left against medical advice (07) | DRG 254 ==
LOC: ER 08:02 → EEVIPCON 08:02 → OVERFLOW 13:03 → CENTRAL 17:37
PROVIDERS: ATTEND Internal Medicine Gastroenterology
DX: K64.8 Other hemorrhoids (principal); K57.92 Diverticulitis of intestine, part unspecified, without perforation or abscess without bleeding; E66.9 Obesity, unspecified; G47.33 Obstructive sleep apnea (adult) (pediatric); I10 Essential (primary) hypertension; Z53.29 Procedure and treatment not carried out because of patient's decision for other reasons; E78.00 Pure hypercholesterolemia, unspecified; K52.9 Noninfective gastroenteritis and colitis, unspecified; J44.89 Other specified chronic obstructive pulmonary disease; F17.200 Nicotine dependence, unspecified, uncomplicated; Z79.1 Long term (current) use of non-steroidal anti-inflammatories (NSAID); Z79.2 Long term (current) use of antibiotics; Z79.899 Other long term (current) drug therapy; Z83.3 Family history of diabetes mellitus; Z82.49 Family history of ischemic heart disease and other diseases of the circulatory system; Z82.0 Family history of epilepsy and other diseases of the nervous system; Z80.0 Family history of malignant neoplasm of digestive organs; Z68.36 Body mass index [BMI] 36.0-36.9, adult
CPT/HCPCS: 36415; 74176; 80048; 80053; 81001; 82306; 82607; 83036; 83605; 83690; 84443; 85025; 87040; 87426; 87804; 94640; 96361; 96365; G0378; J2405; J2470; J3490

== ENCOUNTER 2025-01-31 09:51 | Emergency (ER) | payer MEDICAID ==
[~2025-01-31] VITALS: Ht 170.2 cm; Wt 97.0 kg
[~2025-01-31 09:51] MED LIST changes: +ATOR40TA52 PO; +LOSA-533 PO
[2025-01-31 09:54] VITALS: BP 109/72; PULSE 64; RESP 18; TEMP 97.1; O2SAT 97
--- NOTE | 2025-01-31 10:23 | ED.PDOC ---
GI ASSESSMENT HPI Comments A 54-YEAR-OLD FEMALE WITH NO SIGNIFICANT PMHX PRESENTS TO THE ED WITH A C/C OF NAUSEA, WITH THE ASSOCIATED VOMITING. PATIENT STATES THAT HER SYMPTOMS STARTED APPROXIMATELY 2 DAYS AGO, AND NOTES OF THE ALLEVIATED FACTORS AT THIS TIME. 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 PT IS NOTED HAVE BEEN ADMITTED HERE AT [facility] FOR 3X DAYS FOR SAME COMPLAINTS BUT WAS RECENTLY DISCHARGED. PATIENT DENIES ANY DIARRHEA, HEADACHE, ABD PAIN, DYSURIA, HEMATURIA, OR ANY OTHER ASSOCIATED SYMPTOMS, MODIFIERS AT THIS TIME. Chief Complaint: Nausea/Vomiting Time Seen by MD: 10:19 Primary Care Provider: CHASIDY Reviewed Notes: Nurses Notes, Medications, Allergies Allergies: Coded Allergies: NO KNOWN ALLERGIES (Unverified , 09/30/22) Home Meds Active Scripts Amlodipine Besylate (Amlodipine Besylate) 5 Mg Tab, 1 TAB PO DAILY, #30 TAB Prov:FREDI ADLER 01/31/25 Rosuvastatin Calcium (Crestor) 10 Mg Tab, 1 TAB PO DAILY, #30 TAB Prov:FREDI ADLER 01/31/25 Ondansetron Odt 4MG Tab (ZOFRAN PO) 4 Mg Tb, 4 MG PO BID, #20 TAB ODT TAB-DISSOLVE IN MOUTH, THEN SWALLOW Prov:FREDI ADLER 01/31/25 Metronidazole (Flagyl) 500 Mg Tab, 1 TAB PO TID for 5 Days, #15 TAB Prov:SANDRA DE LA ROSA MD 01/21/25 Cyclobenzaprine Hcl (Cyclobenzaprine Hcl) 5 Mg Tab, 1 TAB PO QHSP, #14 TAB 0 Refills Prov:JULIA CARRERO 12/13/24 Ibuprofen (Ibuprofen) 800 Mg Tab, 1 TAB PO TID PRN, #30 TAB 0 Refills Prov:JULIA CARRERO 12/13/24 Albuterol Sulfate (VENTOLIN MDI) 90 Mcg Ih, 2 PUFF IN Q6HPRN, #1 INH 0 Refills Prov:JULIA CARRERO 12/13/24 Azithromycin (Azithromycin) 250 Mg Tab, 250 MG PO DAILY MDD 500 for 5 Days, #6 TAB 0 Refills 2 TABLETS ORALLY ON DAY ONE, THEN 1 TABLET ORALLY DAILY FOR 4 DAYS Prov:KIKA AHUJA NP 07/04/24 Penicillin V Potassium (Veetids) 500 Mg Tab, 1 TAB PO QID, #28 TAB Prov:FREDI ADLER 02/26/24 Clindamycin Hcl (Clindamycin Hcl) 300 Mg Cap, 1 CAP PO TID, #21 CAP Prov:SASHA FRANCIS MD 01/09/24 Silver Sulfadiazine (Silvadene) 1 % Cre, 1 APPLIC TOP BID, #1 GRAMS Prov:SASHA FRANCIS MD 01/09/24 Hydrocodone-Acetaminophen (Hydrocodone Bitartrate/AC 5-325 mg) 1 Tab Tab, 1 TAB PO Q4HP PRN, #20 TAB Prov:SASHA FRANCIS MD 01/09/24 Reported Medications Atorvastatin Calcium (ATORVASTATIN CALCIUM) 40 Mg Tab, 1 TAB PO QPM, #90 TAB 3 Refills 01/27/25 Losartan Potassium (Losartan Potassium) 25 Mg Tab, 20 MG PO DAILY for 30 Days, MG 01/27/25 Information Source: Patient Mode of Arrival: Ambulatory Timing: Days Duration: Since onset, Intermittent, Days Prehospital treatment: None Quality: Aching Vomitus: Watery Stool: Normal Severity: Mild Recent: None Recent Hx of: None Pain Location: None Modifying Factors: Nothing Associated sign and symptoms: Nausea, Vomiting Past Medical History PAST MEDICAL HISTORY: Asthma Surgical History: Denies all surgeries 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 History Family History Family History: Unknown Social History Smoker: Non-Smoker Alcohol: Denies ETOH Use Drugs: Denies Drug Use Lives In: Home Constitutional: denies: chills, diaphoresis, fatigue, fever, malaise, sweats, weakness, others EENTM: denies: blurred vision, double vision, ear bleeding, ear discharge, ear drainage, ear pain, ear ringing, eye pain, eye redness, hearing loss, mouth pain, mouth swelling, nasal discharge, nose bleeding, nose congestion, nose pain, photophobia, tearing, throat pain, throat swelling, voice changes, others Respiratory: denies: cough, hemoptysis, orthopnea, SOB at rest, shortness of breath, SOB with excertion, stridor, wheezing, others Cardiovascular: denies: chest pain, dizzy spells, diaphoresis, Dyspnea on exertion, edema, irregular heart beat, left arm pain, lightheadedness, palpitations, PND, syncope, others Gastrointestinal: reports: nausea, vomiting; denies: abdomen distended, abdominal pain, blood streaked bowels, constipated, diarrhea, dysphagia, difficulty swallowing, hematemesis, melena, poor appetite, poor fluid intake, rectal bleeding, rectal pain, others Genitourinary: denies: abnormal vagina bleeding, burning, dyspareunia, dysuria, flank pain, frequency, hematuria, incontinence, pain, , vagina discharge, urgency, others Neurological: denies: dizziness, fainting, headache, left sided numbness, left sided weakness, numbness, paresthesia, pre-existing deficit, right sided numbness, right sided weakness, seizure, speech problems, tingling, tremors, weakness, others Musculoskeletal: denies: back pain, gout, joint pain, joint swelling, muscle pain, muscle stiffness, neck pain, others Integumetry: denies: bruises, change in color, change in hair/nails, dryness, laceration, lesions, lumps, rash, wounds, others Allergic/Immunocompromised: denies: Difficulty Healing, Frequent Infections, Hives, Itching, others Hematologic/Lymphatic: denies: anemia, blood clots, easy bleeding, easy bruising, swollen glands, others Endocrine: denies: excessive hunger, excessive sweating, excessive thirst, excessive urination, flushing, intolerance to cold, intolerance to heat, unexplained weight gain, unexplained weight loss, others Psychiatric: denies: anxiety, bipolar disorder, depression, hopeless, panic disorder, schizophrenia, sleepless, suicidal, others All Other Systems: Reviewed and Negative Physical Exam General Appearance: No Apparent Distress, Obese HEENT: Normal ENT Inspection, PERRL/EOMI, Pharynx Normal, TMs Normal Neck: Full Range of Motion, Non-Tender, Normal, Normal Inspection Respiratory: Chest Non-Tender, Lungs Clear, No Accessory Muscle Use, No Respiratory Distress, Normal Breath Sounds Cardiovascular: No Edema, No JVD, No Murmur, No Gallop, Normal Peripheral Pulses, Regular Rate/Rhythm Breast Exam: Deferred Gastrointestinal: No Organomegaly, Non Tender, No Pulsatile Mass, Normal Bowel Sounds, Soft Genitalia: Deferred Pelvic: Deferred Rectal: Deferred Extremities: No calf tenderness, Normal capillary refill, Normal inspection, Normal range of motion, Non-tender, No pedal edema Musculoskeletal : Apperance: Normal Neurologic: Alert, securities consultant II-XII nml as Tested, No Motor Deficits, Normal Affect, Normal Mood, No Sensory Deficits Cerebellar Function: Normal Reflexes: Normal Skin: Dry, Normal Color, Warm Peripheral Pulses: 2+ carotid (R), 2+ carotid (L) Lymphatic: No Adenopathy Was a procedure done? Was a procedure done?: No GI differential Dx Differential Diagnosis: Appendicitis, Cholangitis, Cholecystitis, Constipation, Diverticular disease, Gastritis/PUD, Gastroenteritis, Inflammatory BD, Pancreatitis, UTI, Urolithiasis, Dehydration, Drug toxicity, Electrolyte Imbalance, Food Poisoning, Anemia X-Ray, Labs, Meds, VS Vital Signs Date Time Temp Pulse Resp B/P (MAP) Pulse Ox O2 Delivery O2 Flow Rate FiO2 01/31/25 09:54 97.1 64 18 109/72 97 97.1 Lab Test 01/31/25 10:23 Range/Units White Blood Count 12.7 H 4.4-10.8 10^3/uL Red Blood Count 4.49 4.0-5.20 10^6/uL Hemoglobin 13.8 12.2-16.2 g/dL Hematocrit 41.2 # 36.0-46.0 % Mean Corpuscular Volume 91.8 80.0-100.0 fL Mean Corpuscular Hemoglobin 30.7 28.0-32.0 pg Mean Corpuscular Hemoglobin Concent 33.4 32.0-36.0 g/dL Red Cell Distribution Width 13.9 11.8-14.3 % Platelet Count 317 140-450 10^3/uL Mean Platelet Volume 8.4 6.9-10.8 fL Neutrophils (%) (Auto) 64.4 37.0-80.0 % Lymphocytes (%) (Auto) 25.8 10.0-50.0 % Monocytes (%) (Auto) 6.4 0.0-12.0 % Eosinophils (%) (Auto) 2.8 0.0-7.0 % Basophils (%) (Auto) 0.6 0.0-2.0 % Neutrophils # (Auto) 8.2 1.6-8.6 10 ^3/uL Lymphocytes # (Auto) 3.3 0.4-5.4 10 ^3/uL Monocytes # (Auto) 0.8 0-1.3 10 ^3/uL Eosinophils # (Auto) 0.4 0-0.8 10 ^3/uL Basophils # (Auto) 0.1 0-0.2 10 ^3/uL Nucleated Red Blood Cells 0.0 % Sodium Level 138 136-145 mmol/L Potassium Level 4.4 3.5-5.1 mmol/L Chloride Level 107 98-107 mmol/L Carbon Dioxide Level 25 20-31 mmol/L Anion Gap 6 5-15 Blood Urea Nitrogen 9 9-23 mg/dL Creatinine 0.74 0.550-1.02 mg/dL Glomerular Filtration Rate Calc 97 >90 mL/min BUN/Creatinine Ratio 12.2 10.0-20.0 Serum Glucose 92 74-106 mg/dL Calcium Level 9.2 8.7-10.4 mg/dL X-Ray, Labs, Meds, VS Comment EXTERNAL MEDICAL RECORDS REVIEWED: [NONE] INDEPENDENT HISTORIANS: [NONE] SOCIAL DETERMINANTS OF HEALTH: [NONE] LABS ORDERED: CBC, BMP REVIEWED AND INTERPRETED RESULTS: NONE IMAGING ORDERED: NONE TREATMENTS ORDERED: PROCEDURES PERFORMED: NONE CRITICAL CARE TIME: NONE I HAVE DISCUSSED THE PATIENT WITH THE ATTENDING PHYSICIAN (CADEN) AND S/HE AGREES WITH THE PATIENT'S PLAN OF CARE AND DISPOSITION. BASED ON HISTORY OF PRESENT ILLNESS, AND PHYSICAL EXAM, PATIENT WILL BE DISCHARGED HOME. DISCUSSED PLAN FOR DISCHARGE HOME WITH RX [ANT]. MEDICATION WARNINGS GIVEN. SHARED DECISION MAKING: DISCUSSED WITH PATIENT THAT THEIR WORKUP WAS NORMAL. PATIENT INSTRUCTED TO FOLLOW UP WITH PRIMARY CARE PROVIDER IN 1-2 DAYS FOR RE- EVALUATION OF SYMPTOMS. PATIENT VERBALIZES UNDERSTANDING TO RETURN TO ED FOR NEW OR WORSENING SYMPTOMS OR IF FOLLOW UP WITH PCP CANNOT BE OBTAINED. PATIENT FEELS COMFORTABLE GOING HOME AT THIS TIME. ALL QUESTIONS ADDRESSED AT TIME OF DISCHARGE. Time of 1ST Reevaluation: 11:52 Reevaluation 1ST: Unchanged Patient Education/Counseling: Diagnosis, Treatment, Need For Follow Up Family Education/Counseling: Diagnosis, Treatment, No Family Present Medical Screening: No EMC Exist At This Time SEPSIS Sepsis Screen Date sepsis recognized/suspect: Jan 31, 2025 Time Sepsis recognized/suspect: 09 Recent Procedure: No On Antibiotic Therapy: No Respiratory Rate >20: No Heart Rate >90: No Temp<36 C (96.8 F) or >38.3 C: No SBP <90 or MAP <65 mmHG: No New Acute Mental Status Change: No Is the patient on CPAP, BIPAP,: No Vital Signs Date Time Temp Pulse Resp B/P (MAP) Pulse Ox O2 Delivery O2 Flow Rate FiO2 01/31/25 09:54 97.1 64 18 109/72 97 97.1 Laboratory Tests Test 01/31/25 10:23 White Blood Count 12.7 10^3/uL (4.4-10.8) H Departure 1 Departure Time of Disposition: 11:53 Impression: Primary Impression: Nausea & vomiting Qualified Codes: R11.2 - Nausea with vomiting, unspecified Disposition: HOME / SELF CARE / HOMELESS Condition: Stable Additional Instructions: FOLLOW-UP WITH PCP IN 1 TO 2 DAYS. TAKE MEDICATIONS PRESCRIBED. RETURN TO ED FOR ANY NEW OR WORSENING SYMPTOMS. e-Prescriptions Amlodipine Besylate (Amlodipine Besylate) 5 Mg Tab 1 TAB PO DAILY, #30 TAB Prov: FREDI ADLER 01/31/25 Rosuvastatin Calcium (Crestor) 10 Mg Tab 1 TAB PO DAILY, #30 TAB Prov: FREDI ADLER 01/31/25 Ondansetron Odt 4MG Tab (ZOFRAN PO) 4 Mg Tb 4 MG PO BID, #20 TAB ODT TAB-DISSOLVE IN MOUTH, THEN SWALLOW Prov: FREDI ADLER 01/31/25 Discharged With: Self Critical Care Note Critical Care Time?: No Stability Stability form required: No Heart Score Heart Score: Heart Score Response (Comments) Value History N/A 0 EKG N/A 0 Age N/A 0 Risk Factors N/A 0 Troponin N/A 0 Total 0 I personally scribed for FREDI ADLER ([email or web address]) on 01/31/25 at 10:23. Electronically submitted by Cesar Abel ([email or web address]). FREDI ADLER Jan 31, 2025 10:23
[2025-01-31 10:32] LABS: Hematocrit 41.2 % (36.0-46.0); Hemoglobin 13.8 g/dL (12.2-16.2); Mean Corpuscular Hemoglobin 30.7 pg (28.0-32.0); Mean Corpuscular Volume 91.8 fL (80.0-100.0); Nucleated Red Blood Cells % 0.0 %
[2025-01-31 10:47] LABS: Potassium 4.4 mmol/L (3.5-5.1); Sodium 138 mmol/L (136-145)
[2025-01-31 10:48] LABS: Anion Gap 6 (5-15); Calcium 9.2 mg/dL (8.7-10.4); Carbon Dioxide 25 mmol/L (20-31); Chloride 107 mmol/L (98-107)
[2025-01-31 10:53] LABS: BUN/Creatinine Ratio 12.2 (10.0-20.0); Glucose 92 mg/dL (74-106)
[2025-01-31 10:54] LABS: Blood Urea Nitrogen 9 mg/dL (9-23)
[2025-01-31] MEDS ORDERED: AMLO1TAB22 PO (11:21)
[2025-01-31] MEDS ORDERED: ZOFR4T PO (11:21)
[2025-01-31] MEDS ORDERED: ROSU10TA16 PO (11:21)
== END 2025-01-31 12:16 | disposition home or self-care (01) ==
LOC: ER 09:51
DX: R11.2 Nausea with vomiting, unspecified (principal); Z79.899 Other long term (current) drug therapy
CPT/HCPCS: 36415; 80048; 85025